=== PATIENT | female | born 1990 | race Caucasian/White ===

== ENCOUNTER → 2016-05-09 | Outpatient (CLI) | payer OTHER ==
[~2016-05-09] MED LIST: ADDERALL XR25 MG PO; ADDERALL10 MG PO; FLONASEALLERGY NS; FLOVENT 110MCG7.9 GM IH; LAMICTAL 100MG100 MG PO; VYVANSE40 MG PO; XYREM PO
== END ==
LOC: BHSO 08:33
DX: F41.0 Panic disorder [episodic paroxysmal anxiety] (principal)

== ENCOUNTER → 2016-06-17 | Outpatient (CLI) | payer OTHER | LOC: BHSO 15:33 | DX: F41.1 Generalized anxiety disorder (principal) ==

== ENCOUNTER → 2016-10-01 | Outpatient (CLI) | payer OTHER, BC | LOC: BHSO 08:09 | DX: F41.1 Generalized anxiety disorder (principal) ==

== ENCOUNTER → 2017-01-01 | Outpatient (CLI) | payer OTHER, BC | LOC: BHSO 15:39 | DX: F41.0 Panic disorder [episodic paroxysmal anxiety] (principal) ==

== ENCOUNTER 2017-04-02 08:50 | Emergency (ER) | payer OTHER ==
[~2017-04-02] VITALS: Ht 167.6 cm; Wt 97.7 kg
[2017-04-02 08:55] VITALS: BP 129/66; PULSE 110; TEMP 97.5
[2017-04-02 09:51] LABS: BASO # 0.1 (0.0-0.2); BASO % 1.1 % (0.0-2.0); EOS # 0.4 (0.0-0.7); EOS % 5.9 % (0-4.0); GRAN # 4.7 (1.4-6.5); GRAN % 64.5 % (42.2-75.2); HEMATOCRIT 46.5 % (37.0-47.0); HEMOGLOBIN 15.4 g/dl (12.5-16.0); LYMPH # 1.4 (1.2-3.4); LYMPH % 18.5 % (20.0-51.0); MEAN CELL VOLUME 92 fl (80.0-100.0); MEAN CORPUSCULAR HEMOGLOBIN 30 pg (27.0-31.0); MEAN CORPUSCULAR HGB CONC 33 g/dl (33.0-37.0); MEAN PLATELET VOLUME 9.7 fl (7.4-10.4); MONO # 0.7 (0.1-0.6); MONO % 9.9 % (1.7-9.3); PLATELET COUNT 360 K/mm3 (130-400); RED BLOOD COUNT 5.08 M/mm3 (4.10-5.30); WHITE BLOOD COUNT 7.3 K/mm3 (4.8-10.8)
[2017-04-02 10:03] LABS: ADJUSTED CALCIUM 8.9 mg/dL (8.4-10.2); BILIRUBIN,TOTAL 0.8 mg/dL (0.0-1.0); CALCIUM 9.7 mg/dL (8.4-10.2); CREATININE, serum 0.77 mg/dL (0.52-1.25); POTASSIUM 4.1 mmol/L (3.4-5.0); TOTAL PROTEIN 8.5 gm/dL (6.4-8.2)
== END 2017-04-02 11:49 | disposition home or self-care (01) ==
LOC: COL.ER 08:50
PROVIDERS: Physician Assistant Medical
DX: B34.9 Viral infection, unspecified (principal); R00.0 Tachycardia, unspecified; F41.0 Panic disorder [episodic paroxysmal anxiety]; G47.419 Narcolepsy without cataplexy

== ENCOUNTER → 2017-06-27 | Outpatient (CLI) | payer OTHER | LOC: BHSO 15:38 | DX: F41.1 Generalized anxiety disorder (principal) | CPT/HCPCS: G0463 ==

== ENCOUNTER → 2017-09-05 | Outpatient (CLI) | payer OTHER | LOC: BHSO 14:32 | DX: F41.1 Generalized anxiety disorder (principal) | CPT/HCPCS: G0463 ==

== ENCOUNTER → 2017-09-25 | Outpatient (CLI) | payer OTHER | LOC: MC.RAD 09:45 | DX: N64.4 Mastodynia (principal) ==

== ENCOUNTER → 2017-10-20 | Outpatient (CLI) | payer OTHER | LOC: BHSO 14:26 | DX: F41.1 Generalized anxiety disorder (principal) | CPT/HCPCS: G0463 ==

== ENCOUNTER → 2017-12-02 | Outpatient (CLI) | payer OTHER | LOC: BHSO 16:12 | DX: F41.1 Generalized anxiety disorder (principal) | CPT/HCPCS: G0463 ==

== ENCOUNTER → 2017-12-17 | Outpatient (CLI) | payer OTHER | LOC: COL.RAD 09:27 | DX: J32.8 Other chronic sinusitis (principal); R25.1 Tremor, unspecified | CPT/HCPCS: A9585 ==

== ENCOUNTER → 2018-09-15 | Outpatient (CLI) | payer OTHER | LOC: BHSO 16:15 | DX: F41.1 Generalized anxiety disorder (principal) | CPT/HCPCS: G0463 ==

== ENCOUNTER → 2018-11-30 | Outpatient (CLI) | payer OTHER | LOC: BHSO 16:10 | DX: F41.1 Generalized anxiety disorder (principal) | CPT/HCPCS: G0463 ==

== ENCOUNTER → 2019-08-20 | Outpatient (CLI) | payer SELFPAY | LOC: BHSO 13:40 | DX: F33.42 Major depressive disorder, recurrent, in full remission (principal) | CPT/HCPCS: G0463 ==